=== PATIENT | male | born 1965 | race Two or more races ===

== ENCOUNTER 2019-06-19 03:52 | Emergency (ER) | payer BC, MEDICAID ==
[~2019-06-19] VITALS: Ht 165.1 cm; Wt 77.6 kg
[2019-06-19 04:14] VITALS: BP 144/89
[2019-06-19] MEDS ORDERED: ALBUTEROL FS 2.5 MG/0.5 ML VIAL.NEB NEB ONE (04:30)
[2019-06-19] MEDS ORDERED: ALBUTEROL FS 2.5 MG/0.5 ML VIAL.NEB ONE (04:36)
== END 2019-06-19 05:31 | disposition home or self-care (01) ==
LOC: ER 03:56
DX: J06.9 Acute upper respiratory infection, unspecified (principal)
CPT/HCPCS: 71045-TC

== ENCOUNTER 2022-08-13 12:06 | Emergency (ER) | payer BC, MEDICAID ==
[~2022-08-13] VITALS: Ht 167.6 cm; Wt 72.6 kg
--- NOTE | 2022-08-13 12:11 | NUR ---
CALLED TO TRIAGE, NO RESPONSE.
[2022-08-13 12:30] VITALS: BP 156/70
[2022-08-13] MEDS ORDERED: LIDOCAINE VISCOUS 2% UD 15 ML UDC MM ONE (13:00)
[2022-08-13] MEDS ORDERED: FAMOTIDINE (20 MG) 20 MG TABLET PO ONE (13:00)
[2022-08-13] MEDS ORDERED: MAG HYDROX/AL HYDROX/SIMETH 30 ML UDC PO ONE (13:00)
[2022-08-13] MEDS ORDERED: ONDA4TAB5 PO (13:25)
[2022-08-13] MEDS ORDERED: FAMO-131 PO (13:25)
[2022-08-13] MEDS ORDERED: MAG HYDROX/AL HYDROX/SIMETH 30 ML UDC ONE (13:40)
[2022-08-13] MEDS ORDERED: LIDOCAINE VISCOUS 2% UD 15 ML UDC ONE (13:41)
[2022-08-13] MEDS ORDERED: FAMOTIDINE (20 MG) 20 MG TABLET ONE (13:41)
== END 2022-08-13 13:45 | disposition home or self-care (01) ==
LOC: ER 12:08
DX: R10.13 Epigastric pain (principal); R09.89 Other specified symptoms and signs involving the circulatory and respiratory systems; Z60.2 Problems related to living alone; Z79.899 Other long term (current) drug therapy